=== PATIENT | female | born 1995 | race Two or more races ===

== ENCOUNTER → 2020-11-08 | Outpatient (CLI) | payer OTHER | END | disposition home or self-care (01) | LOC: PRENATAL 09:00 | PROVIDERS: ATTEND Obstetrics & Gynecology Maternal & Fetal Medicine | DX: O35.0XX1 Maternal care for (suspected) central nervous system malformation in fetus, fetus 1 (principal); O35.3XX1 Maternal care for (suspected) damage to fetus from viral disease in mother, fetus 1; O98.512 Other viral diseases complicating pregnancy, second trimester; Z36.89 Encounter for other specified antenatal screening; Z3A.22 22 weeks gestation of pregnancy ==

== ENCOUNTER → 2021-01-02 | Outpatient (CLI) | payer OTHER | END | disposition home or self-care (01) | LOC: PRENATAL 16:00 | PROVIDERS: ATTEND Obstetrics & Gynecology Maternal & Fetal Medicine | DX: O26.843 Uterine size-date discrepancy, third trimester (principal); Z36.89 Encounter for other specified antenatal screening; Z3A.30 30 weeks gestation of pregnancy ==

== ENCOUNTER 2021-03-01 13:30 | Inpatient (IN) | payer OTHER ==
[~2021-03-01] VITALS: Ht 157.5 cm; Wt 58.5 kg
[2021-03-06] MEDS ORDERED: FOLIC ACID0.8 M1 PO (02:10)
[2021-03-06] MEDS ORDERED: PRENATAL TABLE1 EAC4 PO (02:10)
== END 2021-03-08 11:55 | disposition home or self-care (01) | DRG 798 ==
LOC: OB/GYN 03-06 01:19 → LDR 03-06 01:19 → OB/GYN 03-06 04:20 → LDR 03-10 13:30
PROVIDERS: ADMIT Obstetrics & Gynecology; ATTEND Obstetrics & Gynecology
PROC: 4A1HXFZ Monitoring of Products of Conception, Cardiac Rhythm, External Approach (ICD-10-PCS; 2021-03-06)
PROC: 10E0XZZ Delivery of Products of Conception, External Approach (ICD-10-PCS; principal; 2021-03-06 12:00)
PROC: 0UB70ZZ Excision of Bilateral Fallopian Tubes, Open Approach (ICD-10-PCS; 2021-03-07)
DX: O99.284 Endocrine, nutritional and metabolic diseases complicating childbirth (principal); E16.1 Other hypoglycemia; Z37.0 Single live birth; Z3A.39 39 weeks gestation of pregnancy; Z30.2 Encounter for sterilization

== ENCOUNTER 2021-03-13 10:59 | Emergency (ER) | payer OTHER ==
[~2021-03-13] VITALS: Ht 157.5 cm; Wt 49.9 kg
[~2021-03-13 10:59] MED LIST: FOLIC ACID0.8 M1 PO; PRENATAL TABLE1 EAC4 PO
== END 2021-03-13 22:08 | disposition home or self-care (01) ==
LOC: ER 10:59
DX: T88.59XA Other complications of anesthesia, initial encounter (principal); G44.40 Drug-induced headache, not elsewhere classified, not intractable